=== PATIENT | male | born 1945 | race African-American/Black ===

== ENCOUNTER → 2017-08-30 | Outpatient (CLI) | payer MEDICARE, BC ==
[~2017-08-30] MED LIST: METF500T5 PO; PANT40TA5 PO; levothyroxine PO
[2017-08-30 11:52] LABS: ALANINE AMINOTRANSFERASE 161 U/L (12-78); ANION GAP 5 mmol/L (5-15); CALCIUM 9.2 mg/dL (8.5-10.1); CHLORIDE 104 mmol/L (98-107); CREATININE 1.11 mg/dL (0.7-1.3)
[2017-08-30 11:54] LABS: ALKALINE PHOSPHATASE 65 U/L (45-117); BILIRUBIN,TOTAL 0.8 mg/dL (0.2-1.0); TOTAL PROTEIN 8.3 g/dL (6.4-8.2)
== END | disposition home or self-care (01) ==
LOC: STAR 10:33 → MERGE 10:33
PROVIDERS: ATTEND Surgery
DX: Z01.818 Encounter for other preprocedural examination (principal); I51.7 Cardiomegaly; K80.10 Calculus of gallbladder with chronic cholecystitis without obstruction
CPT/HCPCS: 36415; 80053; 93005

== ENCOUNTER 2017-09-04 14:03 | Observation (INO) | payer MEDICARE, BC ==
[2017-08-30 11:14] VITALS: BP 176/89
[~2017-09-04] VITALS: Ht 177.8 cm; Wt 87.5 kg
[~2017-09-04 14:03] MED LIST changes: +BUPIVACAINE/PF-EPI 0.5% 1:200K ONE
[2017-09-04] MEDS ORDERED: LACTATED RINGERS 1,000 ML IV SCH (14:26)
[2017-09-04] MEDS ORDERED: OxyconTIN ER 10 MG TAB.ER PO ONE (14:30)
[2017-09-04] MEDS ORDERED: GABAPENTIN 300 MG CAPSULE PO ONE (14:30)
[2017-09-04] MEDS ORDERED: ACETAMINOPHEN 500 MG TABLET PO ONE (14:30)
[2017-09-04] MEDS ORDERED: FENTANYL PF 250 MCG/5ML ONE (14:59)
[2017-09-04] MEDS ORDERED: BUPIVACAINE/PF-EPI 0.5% 1:200K ONE (14:59)
[2017-09-04] MEDS ORDERED: MIDAZOLAM 1 MG/ML, 2ML ONE (14:59)
[2017-09-04] MEDS ORDERED: PROPOFOL 10 MG/ML, 20ML ONE ×2 (15:00)
[2017-09-04] MEDS ORDERED: GLYCOPYRROLATE 0.2MG/1ML, 5ML ONE (15:01)
[2017-09-04] MEDS ORDERED: ROCURONIUM 10MG/ML,5ML ONE (15:01)
[2017-09-04] MEDS ORDERED: NEOSTIGMINE 1 MG/ML, 10ML ONE (15:01)
[2017-09-04] MEDS ORDERED: CEFOTETAN 2 GM ONE (15:28)
[2017-09-04] MEDS ORDERED: FENTANYL PF 100 MCG/2ML ONE (15:50)
[2017-09-04] MEDS ORDERED: hydrALAzine 20 MG/ML, 1ML IV PRN (16:30)
[2017-09-04] MEDS ORDERED: FENTANYL PF 100 MCG/2ML IV PRN (16:30)
[2017-09-04] MEDS ORDERED: MORPHINE SULFATE 4 MG/ML, 1ML IVPush PRN ×2 (16:30→19:00)
[2017-09-04] MEDS ORDERED: ONDANSETRON ODT 8 MG PO PRN (16:30)
[2017-09-04] MEDS ORDERED: MEPERIDINE/PF 25MG/0.5ML IVPush PRN (16:30)
[2017-09-04] MEDS ORDERED: OXYcodone 5 MG/5 ML ORAL.SOL UDC PO PRN (16:30)
[2017-09-04] MEDS ORDERED: PROMETHAZINE 25 MG SUPP PR PRN (16:30)
[2017-09-04] MEDS ORDERED: PROMETHAZINE 25 MG/ML, 1ML IV PRN (16:30)
[2017-09-04] MEDS ORDERED: HYDROmorphone 1 MG/ML, 1ML IV PRN (16:30)
[2017-09-04] MEDS ORDERED: LABETALOL 5MG/ML, 20ML IV PRN (16:30)
[2017-09-04] MEDS ORDERED: PROMETHAZINE 12.5 MG SUPP PR PRN ×2 (16:30→21:00)
[2017-09-04] MEDS ORDERED: OXYcodone 5 MG/5 ML ORAL.SOL UDC ONE (16:51)
[2017-09-04] MEDS ORDERED: ONDANSETRON 2MG/ML, 2ML IVPush PRN ×3 (18:15→21:00)
[2017-09-04] MEDS ORDERED: ONDANSETRON 2MG/ML, 2ML ONE (18:21)
[2017-09-04] MEDS ORDERED: HYDROmorphone 2 MG/ML, 1ML IV PRN (19:00)
[2017-09-04] MEDS ORDERED: HYDROcodone/APAP 5/325 TABLET PO PRN (19:00)
[2017-09-04] MEDS ORDERED: OXYcodone/APAP 5/325MG TABLET PO PRN (19:00)
[2017-09-04] MEDS ORDERED: PROMETHAZINE 25 MG/ML, 1ML IM PRN (21:00)
[2017-09-04] MEDS: LACTATED RINGERS 1,000 ML IV SCH (21:24)
[2017-09-05] VITALS: BP 140/68
[2017-09-05 02:58] VITALS: BP 136/74
[2017-09-05] MEDS: LACTATED RINGERS 1,000 ML IV SCH (05:00)
[2017-09-05] MEDS ORDERED: LEVOTHYROXINE 125 MCG TABLET PO SCH (06:00)
[2017-09-05] MEDS ORDERED: PANTOPROZOLE 40MG TABLET PO SCH (07:30)
[2017-09-05 07:47] VITALS: BP 137/69
[2017-09-05] MEDS ORDERED: metFORMIN 500 MG TABLET PO SCH (08:00)
[2017-09-05 10:54] LABS: BASOPHILS % (AUTO) 0 % (0-1); EOSINOPHILS % (AUTO) 0 % (1-7); LYMPHOCYTES # (AUTO) 1.31 x10^3/uL (1-3.4); LYMPHOCYTES % (AUTO) 12 % (22-44); MD NO; MEAN CORPUSCULAR HEMOGLOBIN 29.8 pg (27.5-34.5); MEAN CORPUSCULAR HGB CONC 33.1 g/dL (33.2-36.2); MEAN CORPUSCULAR VOLUME 90.2 fL (81-97); MEAN PLATELET VOLUME 7.4 fL (7.4-10.4); MONOCYTES # (AUTO) 0.58 x10^3/uL (0.2-0.8); MONOCYTES % (AUTO) 5 % (2-9); NEUTROPHILS # (AUTO) 9.32 x10^3/uL (1.8-6.8); NEUTROPHILS % (AUTO) 83 % (42-75); PLATELET COUNT 189 x10^3/uL (130-400); RED BLOOD COUNT 4.67 x10^6/uL (4.38-5.82); RED CELL DISTRIBUTION WIDTH 13.8 % (9.4-14.8)
[2017-09-05 11:03] LABS: ANION GAP 7 mmol/L (5-15); CALCIUM 9.1 mg/dL (8.5-10.1); CHLORIDE 103 mmol/L (98-107); CREATININE 1.12 mg/dL (0.7-1.3)
[2017-09-05 12:07] VITALS: BP 127/69
== END 2017-09-05 12:45 | disposition home or self-care (01) ==
LOC: OR 14:03 → 4NOR 17:20 → OR 22:49 → 4NOR 22:51
PROVIDERS: ADMIT Surgery; ATTEND Surgery
DX: K80.20 Calculus of gallbladder without cholecystitis without obstruction (principal); K76.0 Fatty (change of) liver, not elsewhere classified; E11.9 Type 2 diabetes mellitus without complications; I10 Essential (primary) hypertension; E03.9 Hypothyroidism, unspecified
CPT/HCPCS: 47562; 80048; 82962; 85025; 88304; 96372; 96374; G0378; J2250; J2405; J2550; J2704; J2710; J3010; J3490; J7120; S0074

== ENCOUNTER 2020-11-04 10:45 | Outpatient (CLI) | payer MEDICARE, BC ==
[~2020-11-04 10:45] MED LIST changes: -BUPIVACAINE/PF-EPI 0.5% 1:200K ONE; +METF500T17 PO; -METF500T5 PO; -PANT40TA5 PO; +PANT40TA6 PO
[2020-11-04 11:17] LABS: ALBUMIN 4.1 g/dL (3.4-5.0); ANION GAP 6 mmol/L (5-15); CALCIUM 9.2 mg/dL (8.5-10.1); CHLORIDE 104 mmol/L (98-107)
[2020-11-04 11:27] LABS: ALANINE AMINOTRANSFERASE 122 U/L (12-78); ALKALINE PHOSPHATASE 53 U/L (45-117); BILIRUBIN,TOTAL 1.2 mg/dL (0.2-1.0); CHOL/HDL RATIO 2.4; CHOLESTEROL, TOTAL 102 mg/dL (140-239); FREE T4 (FREE THYROXINE) 1.14 ng/dL (0.76-1.46); HDL CHOL % 41 % (26-37); HDL CHOLESTEROL (DIRECT) 42 mg/dL (40-60); LDL CHOLESTEROL,CALCULATED 47 mg/dL (54-169); LDL/HDL RATIO 1.1 (0.5-3.0); TOTAL PROTEIN 8.5 g/dL (6.4-8.2); TRIGLYCERIDES 67 mg/dL (50-200); VLDL CHOLESTEROL 13 mg/dL (0-25)
== END 2020-11-04 23:59 | disposition home or self-care (01) ==
LOC: LAB 10:45
PROVIDERS: ATTEND Internal Medicine
DX: E11.9 Type 2 diabetes mellitus without complications (principal); E03.9 Hypothyroidism, unspecified
CPT/HCPCS: 36415; 80053; 80061; 82043; 82570; 83036; 84439; 84443